=== PATIENT | female | born 1940 | race Caucasian/White ===

== ENCOUNTER → 2017-11-27 10:15 | Outpatient (CLI) | payer OTHER, SELFPAY ==
[2017-11-27 11:25] LABS: Add Manual Diff / Slide Review NO; Basophils Percent Auto 0.5 % (0-2); Eosinophils Percent Auto 2.2 % (2-4); Hematocrit 43.6 % (36-46); Hemoglobin 14.5 g/dL (12.0-16.0); Lymphocytes Percent Auto 17.4 % (25-40); Mean Corpuscular HGB Conc 33.3 % (30-36); Mean Corpuscular Hemoglobin 30.4 PG (26-34); Mean Corpuscular Volume 91.3 fL (80-100); Monocytes Percent Auto 5.9 % (3-14); Neutrophils Absolute Auto 5300 /uL (3000-5900); Platelet Count 246 X10^3/uL (150-400); Red Blood Cell Count 4.78 X10^6/uL (4.0-5.2); Red Cell Distribution Width 13.1 % (11.6-14.8); White Blood Cell Count 7.2 X10^3/uL (4.5-11.0)
[2017-11-27 12:11] LABS: Alanine Aminotransferase 37 IU/L (9-52); Albumin 4.6 g/dL (3.5-5.0); Albumin Globulin Ratio 1.6 (1.0-2.8); Alkaline Phosphatase 94 U/L (38-126); Aspartate Aminotransferase 34 IU/L (14-36); BUN Creatinine Ratio 18.3 (6-22); Bilirubin Total 0.9 mg/dL (0.2-1.3); Blood Urea Nitrogen 11 mg/dL (7-17); Calcium 9.7 mg/dL (8.4-10.2); Carbon Dioxide 31 mmol/L (22-32); Chloride 104 mmol/L (98-107); Estimated Glomerular Filt Rate > 60.0 mL/min (>60); Globulin 2.8 g/dL (1.7-4.1); Glucose 97 mg/dL (80-110); HEMOLYSIS < 15 (0-50); Sodium 144 mmol/L (137-145); Total Protein 7.4 g/dL (6.3-8.2)
[2017-11-27 12:12] LABS: Potassium 5.4 mmol/L (3.4-5.1)
[2017-11-27 12:40] LABS: Thyroid Stimulating Hormone 3.45 uIU/mL (0.47-4.68)
== END ==
PROVIDERS: PCP Family Medicine; Visit Provider Family Medicine
DX: A09 Infectious gastroenteritis and colitis, unspecified (principal)
CPT/HCPCS: 36415; 80053; 84443; 85025; 87177; 87493

== ENCOUNTER 2018-07-27 11:56 | Day surgery (SDC) | payer OTHER, SELFPAY ==
[2018-07-27 12:13] VITALS: BP 169/85; PULSE 67; RESP 15; TEMP 36.6; O2SAT 100; BMI 23.4
[2018-07-27] MEDS: SODIUM CHLORIDE 0.9% 1,000 ML 200 ML IV (12:33)
--- NOTE | 2018-07-27 12:51 | PM.HP.1 ---
History of Present Illness Date Patient Seen: 07/27/18 Time Patient Seen: 12:51 Chief complaint: 13819 SCREENING COLONOSCOPY Narrative: Asymptomatic here for screening colonoscopy Patient History Medical History Diverticular disease (Chronic Unknown) Herpes zoster (Chronic 2008) Hip pain (Chronic Unknown) Hydronephrosis (Chronic 1970) Osteopenia (Chronic Unknown) Positive PPD (Chronic Unknown) Restless leg syndrome (Chronic 1979) Breast cancer (Resolved 2010) Chickenpox (Resolved 1949) Colon polyps (Resolved Unknown) Hepatitis A (Resolved 1957) Kidney stones (Resolved 1969) Surgical History Hx of appendectomy (Resolved 2014) Hx of hysterectomy (Resolved 1989) Hx of left mastectomy (Resolved 2010) Hx of surgical procedure (Resolved ~1961) Family History (Updated 10/17/17 @ 14:28 by Ana Paula Rod LPN) Father No problems noted. Mother Diabetes mellitus Hypertension Brother No problems noted. Brother No problems noted. Sister Peripheral vascular disease Social History household members: spouse Smoking Status: Never smoker alcohol intake: current (1 a day) substance use type: does not use Family & Social History Family History Father No problems noted. Mother Diabetes mellitus Hypertension Brother No problems noted. Brother No problems noted. Sister Peripheral vascular disease Social History: household members spouse Tobacco & Substance use: Smoking Status Never smoker alcohol intake current Meds Home Medications Medication Instructions Recorded Confirmed Type pramipexole 0.25 mg tablet 0.25 mg PO HS #30 tab 07/09/18 07/27/18 Rx Allergies Allergy/AdvReac Type Severity Reaction Status Date / Time No Known Drug Allergies Allergy Verified 11/24/17 16:05 Review of Systems Review of Systems All systems reviewed & are unremarkable except as noted in HPI and below Exam Vital Signs (past 8 hours): - 07/27/18 12:13 Temperature 97.8 F Pulse Rate 67 Respiratory Rate 15 Blood Pressure 169/85 H Pulse Oximetry 100 Oxygen Delivery Method Room Air Narrative Exam Narrative: Patient is alert and oriented vital signs are stable Lungs are clear with no rales Heart regular rhythm no murmur Abdomen soft no organomegaly no tenderness She has surgical absence of the left breast due to carcinoma surgery Rectal redone at time of colonoscopy Assessment & Plan Assessment & Plan narrative: Asymptomatic patient has had prior polypectomies most recent colonoscopy about 5 years ago. She is asymptomatic now she understands and agrees to proceed with screening colonoscopy
[2018-07-27] MEDS: fentaNYL 250 MCG/5 ML INJ IV (13:07)
[2018-07-27] MEDS: MIDAZOLAM 5 MG/5 ML VIAL IV (13:08)
--- NOTE | 2018-07-27 13:24 | PM.OP.ENDO ---
Operative Date/Time/Diagnoses Date of procedure: 07/27/18 Time of procedure: 13:25 Pre-op diagnosis: Screening colonoscopy Post-op diagnosis: other (Severe marked sigmoid diverticulosis with rigidity and fixation of the sigmoid colon and stricturing of the sigmoid colon) Procedure & Clinicians Study performed: Colonoscopy to 40 cm in the descending sigmoid colon Same procedure as scheduled: No Indications: Screening with history of polyps suggested Surgeon: Michel Alcantar Procedure Notes SCOAP/Timeout: Done Procedure in detail: Total of 4 mg of Versed and 150 micro g of fentanyl were administered throughout this procedure. patient was properly identified during surgical pause flexible fiberoptic colonoscope inserted transanally into the rectum and then sigmoid colon. With extreme caution and great difficulty I was able to get the scope tip up to 40 cm in the descending colon at that point there is stricture ring rigidity and extremely severe diverticular disease and I cannot safely identify the lumen. After 25 minutes of trying to pass the scope through this region I aborted the procedure out of safety issues. My fear was possibly causing perforation of 1 of these diverticuli. I saw no polyps. She tolerated this procedure well. examination of the remainder of her colon will need to be done by an air contrast barium enema or capsule endoscopy if indicated. Scope withdrawal time: 7 Sedation minutes: 25 Findings: diverticulosis Specimen(s): none sent Complications: none Impression: Extremely severe sigmoid and descending colon diverticulosis with rigidity and stricture . No polyps are identified Follow up: as needed Disposition: PACU
[2018-07-27 13:26] VITALS: BP 111/55; PULSE 76; RESP 12; TEMP 36.5; O2SAT 93
[2018-07-27 13:31] VITALS: BP 109/63; PULSE 80; RESP 12; TEMP 36.7; O2SAT 95
[2018-07-27 13:36] VITALS: BP 120/69; PULSE 77; RESP 12; TEMP 36.6; O2SAT 94
[2018-07-27 13:50] VITALS: BP 136/85; PULSE 73; RESP 14; TEMP 36.5; O2SAT 99
== END 2018-07-27 14:02 | disposition home or self-care (01) ==
PROVIDERS: PCP Family Medicine; Visit Provider Surgery
PROC: 0DJD8ZZ Inspection of Lower Intestinal Tract, Via Natural or Artificial Opening Endoscopic (ICD-10-PCS; CPT 45378; principal; 2018-07-27 13:45)
DX: Z86.010 Personal history of colon polyps (principal); K57.30 Diverticulosis of large intestine without perforation or abscess without bleeding
CPT/HCPCS: G0105; 99152; 99153; J2250; J3010

== ENCOUNTER → 2018-11-23 13:12 | Outpatient (CLI) | payer OTHER, SELFPAY ==
[2018-11-23 14:15] LABS: Blood Urea Nitrogen 11 mg/dL (7-17); Calcium 9.2 mg/dL (8.4-10.2); Carbon Dioxide 24 mmol/L (22-32); Chloride 106 mmol/L (98-107); Cholesterol 210 mg/dL (140-199); Estimated Glomerular Filt Rate > 60.0 mL/min (>60); Glucose 96 mg/dL (80-110); HDL Cholesterol 106 mg/dL (40-60); HEMOLYSIS 33 (0-50); LDL Cholesterol Calculated 88 mg/dL (<100); Potassium 5.1 mmol/L (3.4-5.1); Sodium 141 mmol/L (137-145); Triglycerides 82 mg/dL (35-150)
[2018-11-23 16:54] LABS: Vitamin D 25 Hydroxy (D3) 31.6 ng/mL (30.0-100.0)
== END ==
PROVIDERS: PCP Student in an Organized Health Care Education/Training Program; Visit Provider Student in an Organized Health Care Education/Training Program
DX: Z13.220 Encounter for screening for lipoid disorders (principal); E55.9 Vitamin D deficiency, unspecified; M85.80 Other specified disorders of bone density and structure, unspecified site; E87.5 Hyperkalemia
CPT/HCPCS: 36415; 80048; 80061; 82306

== ENCOUNTER → 2018-12-18 09:41 | Outpatient (CLI) | payer OTHER, SELFPAY | PROVIDERS: PCP Student in an Organized Health Care Education/Training Program; Visit Provider Student in an Organized Health Care Education/Training Program | DX: M85.852 Other specified disorders of bone density and structure, left thigh (principal); Z78.0 Asymptomatic menopausal state; Z85.3 Personal history of malignant neoplasm of breast; Z82.62 Family history of osteoporosis; Z87.891 Personal history of nicotine dependence; Z91.89 Other specified personal risk factors, not elsewhere classified | CPT/HCPCS: 77080 ==

== ENCOUNTER → 2019-02-07 09:09 | Outpatient (CLI) | payer OTHER, SELFPAY ==
--- NOTE | 2019-02-07 | DI.MRI.S_ITS ---
PROCEDURE: MR LUMBAR SPINE WO CON INDICATIONS: Sacrococcygeal disorders, PAIN TECHNIQUE: Noncontrast sagittal T1 spin echo and T2 fast echo, sagittal STIR, axial T1 and T2 fast spin echo through the lumbar spine. Axial and oblique coronal T1 spin echo and STIR through the sacrum. In cases with scoliosis, additional coronal T2 fast spin echo may be performed. COMPARISON: None. FINDINGS: Image quality: Diagnostic Alignment and Curvature: There is mild anterolisthesis seen at the L4-L5 and L5-S1 levels. Bone Marrow: Marrow is of normal overall signal. No acute vertebral body compression fractures. No sacral fractures. Spinal Cord: Conus medullaris terminates at the T12-L1 level. Visualized cord demonstrates normal signal and size. Paraspinous Soft Tissues: No paravertebral masses. Renal cysts are seen, left worse than right. T12-L1: Normal appearance. L1-L2: Normal appearance. L2-L3: The disc height and disc signal are relatively well-preserved. Mild generalized disc bulge is seen. Mild bilateral neural foraminal narrowing is seen. No central canal narrowing is seen. L3-L4: Moderate loss of disc height is seen. Loss of disc signal is seen. Mild to moderate disc bulge is seen. There is minimal left-sided neural foraminal narrowing and no significant right-sided neural foraminal narrowing is seen. Mild central canal narrowing is seen. L4-L5: Moderate loss of disc height is seen. Loss of disc signal is seen. Reactive marrow endplate changes are seen, which demonstrate mixed T1 weighted and T2-weighted signal, and are attributed to a combination of edema and fatty metaplasia (Modic type I and Modic type II changes). Mild to moderate disc bulge is seen. Ooxj-dy-ncphlsop facet hypertrophy is seen. Mild bilateral neural foraminal narrowing is seen. Mild central canal narrowing is seen. L5-S1: The disc height is well-preserved. Loss of disc signal is seen at this level. Mild generalized disc bulge is seen. No significant neural foraminal or central canal narrowing can be seen. Sacrum: Sacral neural foramina appear normal throughout. Superior to the piriformis muscles, the pre-plexal structures appear normal, including the lumbosacral trunk and S1 root. Just anterior to the piriformis muscles, the sacral plexus proper demonstrates normal morphology (lumbosacral trunk, S1 to S3 nerve roots). Inferior to the piriformis muscles, the sciatic nerves appear normal. Note is made of fatty metaplasia within the sacrum itself. No additional bone marrow abnormality can be seen of the sacrum. No fractures or bony edema can be seen within the sacrum. IMPRESSION: No significant sacral abnormality is seen. Lumbar spine degenerative changes are seen, which are most prominent at L3-L4 and L4-L5. Dictated by: Jairo Patten M.D. on 02/07/2019 at 10:53 Approved by: Jairo Patten M.D. on 02/07/2019 at 10:58
== END ==
PROVIDERS: PCP Student in an Organized Health Care Education/Training Program; Visit Provider Orthopaedic Surgery
DX: M53.3 Sacrococcygeal disorders, not elsewhere classified (principal); M47.816 Spondylosis without myelopathy or radiculopathy, lumbar region
CPT/HCPCS: 72148

== ENCOUNTER → 2020-01-23 07:58 | Outpatient (CLI) | payer OTHER, SELFPAY ==
--- NOTE | 2020-01-23 07:59 | DI.ECHO.S_ITS ---
[facility] +---------+ : : [address] : [place] : : : : [id number] : : : : Phone: [phone] Echocardiogram Report + + :Name: SARBJIT DAVE Study Date: 01/23/2020 Height: 65 in : :[facility] Weight: 146 lb : : Gender: Female BSA: 1.7 m2 : :: 1940 Age: 79 yrs BP: 130/83 mmHg: :Reason For Study: MURMUR : :Ordering Physician: RISA, : :JHONY Performed By: Ana Maxwell : :Referring: JHONY LORD : + + Interpretation Summary The ejection fraction is estimated to be 60-65%. There is mild mitral annular calcification. There is trace mitral regurgitation. There is mild aortic valve sclerosis. The calculated aortic valve area is 1.6 cm2. There is mild aortic regurgitation. There is mild tricuspid regurgitation. The right ventricular systolic pressure is estimated to be at least 30 mmHg based on an estimated right atrial pressure of 3 mm Hg. Procedure: A two-dimensional transthoracic echocardiogram with color flow and Doppler was performed. The study quality was technically adequate. There is no prior echocardiogram noted for this patient. Left Ventricle: The left ventricle is normal in size and wall thickness. The ejection fraction is estimated to be 60-65%. Left ventricular wall motion is normal. Diastolic parameters suggest probable normal left ventricular diastolic function and normal filling pressures. Right Ventricle: The right ventricle is normal in size and function. Atria: There is mild biatrial enlargement. Right atrial size is normal. There is no Doppler evidence for an interatrial shunt. Mitral Valve: The mitral valve leaflets appear mildly thickened, but open well. There is mild mitral annular calcification. There is trace mitral regurgitation. Aortic Valve: There is mild aortic valve sclerosis. The aortic valve is mildly calcified. The aortic valve is trileaflet. The aortic valve mean gradient is 12.6 mmHg. The peak aortic velocity is 2.5 m/sec. The calculated aortic valve area is 1.6 cm2. There is mild aortic regurgitation. Tricuspid Valve: The tricuspid valve is normal in structure and function. There is mild tricuspid regurgitation. The right ventricular systolic pressure is estimated to be at least 30 mmHg based on an estimated right atrial pressure of 3 mm Hg. Pulmonic Valve: The pulmonic valve is not well visualized. There is mild pulmonic regurgitation. Great Vessels: The aortic root is normal size. The ascending aorta is mildly enlarged. The IVC is of normal diameter and collapses greater than 50% with a sniff. This suggests a low right atrial pressure of 3 mm Hg. Pericardium/ Pleura There is no pericardial effusion. There is no pleural effusion. MMode/2D Measurements & Calculations LVIDd: 4.6 cm LVOT diam: 1.9 cm LVIDs: 3.1 cm Ao root diam: 2.8 cm FS: 33.1 % asc Aorta Diam: 3.7 cm EPSS: 1.1 cm Ao Arch Diam (Prox Trans): 2.4 cm IVSd: 0.88 cm LVPWd: 0.90 cm LV duarte. diameter/BSA (cm/m^2): 2.6 LV sys. diameter/BSA (cm/m^2): 1.8 LA A2 area: 24.9 cm2 RA long axis: 4.1 cm LA A4 area: 14.8 cm2 RA area: 11.1 cm2 LA length (vol): 5.0 cm RA vol: 25.5 ml LA vol: 62.6 ml RA : 14.7 ml/m2 LA vol index: 36.2 ml/m2 IVC diam: 1.7 cm RVD1 (basal): 3.0 cm TAPSE: 1.8 cm Doppler Measurements & Calculations Ao V2 max: 251.6 cm/sec LVOT Max Ayden: 134.9 cm/sec Ao V2 mean: 161.6 cm/sec LV V1 max P.3 mmHg Ao max P.3 mmHg LV V1 VTI: 25.6 cm Ao mean P.6 mmHg BINTA(I,D): 1.4 cm2 Ao V2 VTI: 52.3 cm BINTA(V,D): 1.6 cm2 sev ratio: 0.49 BINTA indexed to BSA (cm^2/m^2): 0.83 AI P1/2t: 604.7 msec AI dec slope: 204.4 cm/sec2 MV E max ayden: 106.8 cm/sec TR max ayden: 261.8 cm/sec MV A max ayden: 104.1 cm/sec TR max P.4 mmHg MV E/A: 1.0 PA V2 max: 76.5 cm/sec Med Peak E' Ayden: 9.5 cm/sec PA V2 mean: 47.5 cm/sec E/E' med: 11.3 PA mean P.1 mmHg Lat Peak E' Ayden: 10.5 cm/sec PA pr(Accel): 20.8 mmHg E/E' lat: 10.2 E/e' average: 10.7 MV dec time: 0.18 sec SV(LVOT): 75.3 ml Reading Physician:12:37 PM
== END ==
PROVIDERS: PCP Student in an Organized Health Care Education/Training Program; Referring Provider Student in an Organized Health Care Education/Training Program; Visit Provider Student in an Organized Health Care Education/Training Program
DX: I08.2 Rheumatic disorders of both aortic and tricuspid valves (principal); R01.1 Cardiac murmur, unspecified; Z82.49 Family history of ischemic heart disease and other diseases of the circulatory system
CPT/HCPCS: 93306

== ENCOUNTER 2020-02-20 10:29 | Emergency (ER) | payer OTHER, SELFPAY ==
[2020-02-20 10:48] VITALS: BP 171/80; PULSE 66; RESP 14; TEMP 36.4; O2SAT 100; BMI 25.0
--- NOTE | 2020-02-20 10:50 | DI.RAD.S_ITS ---
PROCEDURE: XR HUMERUS RT 2V INDICATIONS: fell onto right arm TECHNIQUE: 2 views of the humerus were acquired. COMPARISON: None. FINDINGS: Bones: No acute fractures. No suspicious bony lesions. Mild widening of the acromioclavicular joint. Soft tissues: No suspicious soft tissue calcifications. IMPRESSION: No acute humeral fracture. Mild widening of the acromioclavicular joint space. Dictated by: Derrick Lloyd M.D. on 02/20/2020 at 10:21 Approved by: Derrick Lloyd M.D. on 02/20/2020 at 10:22
--- NOTE | 2020-02-20 10:50 | DI.RAD.S_ITS ---
PROCEDURE: XR SHOULDER RT MIN 2V INDICATIONS: fell onto right arm TECHNIQUE: Three views of the shoulder were acquired. COMPARISON: None. FINDINGS: Bones: Mild widening of the acromioclavicular joint may indicate a grade 1-2 acromioclavicular separation injury. The remaining osseous structures are intact. No suspicious bony lesions. Visualized ribs appear intact. Soft tissues: No suspicious soft tissue calcifications. IMPRESSION: Mild widening of the acromioclavicular joint is suspicious for an acromioclavicular separation injury. No acute fracture is seen. Dictated by: Derrick Lloyd M.D. on 02/20/2020 at 10:17 Approved by: Derrick Lloyd M.D. on 02/20/2020 at 10:21
--- NOTE | 2020-02-20 10:59 | DI.RAD.S_ITS ---
PROCEDURE: XR FINGER RT MIN 2V INDICATIONS: injury TECHNIQUE: PA view of the hand and two views of the small finger obtained. COMPARISON: None. FINDINGS: Bones: There is irregularity and remodeling of the articular surfaces at the 5th proximal interphalangeal joint with marginal osteophyte formation and joint space narrowing, which may be related to primary osteoarthrosis or inflammatory or posttraumatic arthritis with secondary degenerative changes. Degenerative changes are seen in the distal interphalangeal joints in the 2nd and 4th proximal interphalangeal joints. There is generalized osteopenia. No displaced fracture is seen. Soft tissues: No suspicious soft tissue calcifications. IMPRESSION: 1. Severe degenerative changes at the 5th proximal interphalangeal joint may be related to primary osteoarthrosis versus chronic posttraumatic changes or the sequela of an inflammatory arthritis such as psoriatic arthritis. 2. 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 3. No acute fracture or dislocation is seen. Dictated by: Derrick Lloyd M.D. on 02/20/2020 at 10:22 Approved by: Derrick Lloyd M.D. on 02/20/2020 at 10:28
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
[2020-02-20 12:34] VITALS: BP 171/77; PULSE 66; RESP 12; O2SAT 98
== END 2020-02-20 12:37 | disposition home or self-care (01) ==
PROVIDERS: Emergency Provider Nurse Practitioner Family; PCP Student in an Organized Health Care Education/Training Program
DX: S40.021A Contusion of right upper arm, initial encounter (principal); S43.101A Unspecified dislocation of right acromioclavicular joint, initial encounter; M79.644 Pain in right finger(s); W19.XXXA Unspecified fall, initial encounter
CPT/HCPCS: 73030; 73060; 73140; 99281; 99283

== ENCOUNTER → 2020-03-28 12:47 | Outpatient (CLI) | payer OTHER, SELFPAY ==
--- NOTE | 2020-03-28 | DI.MRI.S_ITS ---
PROCEDURE: MR SHOULDER RT WO CON INDICATIONS: Bursitis of right shoulder TECHNIQUE: Noncontrast oblique coronal T2 fast spin echo with fat saturation, oblique sagittal T1 spin echo and T2 fast spin echo with fat saturation, axial T1 spin echo and T2 fast spin echo with fat saturation through the shoulder. COMPARISON: None. FINDINGS: Image quality: Excellent. Rotator cuff: There is full-thickness rupture involving anterior to mid fibers of distal supraspinatus at its insertion on the humeral head with up to 2 centimeter medial retraction of torn tendon fibers to the level of acromion. Tendinosis and low to moderate grade articular surface partial-thickness tear involving posterior fibers of distal supraspinatus and infraspinatus is seen. Distal subscapularis tendinosis is noted. Sagittal images demonstrate mild supraspinatus muscle atrophy. Bones and bursae: No bone marrow contusions or fractures. Mild to moderate acromioclavicular joint osteoarthritic changes are seen. Mild glenohumeral joint osteoarthritic changes also noted. The acromion demonstrates conventional anatomy, without an os acromiale. Moderate amount of joint effusion and subacromial subdeltoid bursal fluid is seen. 8 x 4 mm possible intra-articular loose body in anterior aspect of joint capsule anterior to the distal subscapularis tendon is seen. Capsule and soft tissues: In the absence of intra-articular contrast, the labrum and glenohumeral ligaments appear intact. Proximal intra-articular portion of long head of biceps tendinosis and low-grade partial-thickness tear is seen. The rotator interval appears normal, without fibrosis. The coracohumeral ligament is normal in thickness. IMPRESSION: 1. Full-thickness rupture involving anterior to mid fibers of distal supraspinatus at its insertion on the humeral head with up to 2 cm medial retraction of torn tendon fibers to the level of acromion. Tendinosis and low to moderate grade articular surface partial-thickness tear involving posterior fibers of distal supraspinatus and infraspinatus. Distal subscapularis tendinosis. Mild supraspinatus muscle atrophy. 2. Mild to moderate acromioclavicular joint osteoarthritis and glenohumeral joint osteoarthritis. Moderate amount of joint effusion and subacromial subdeltoid bursal fluid. Possible 8 x 4 mm intra-articular loose body in anterior aspect of glenohumeral joint space anterior to the distal subscapularis tendon. 3. No definite focal labral tear. 4. Proximal intra-articular portion of long head of biceps tendinosis and low-grade partial-thickness tear. Dictated by: Rinku Maldonado M.D. on 03/30/2020 at 9:24 Approved by: Rinku Maldonado M.D. on 03/30/2020 at 9:30
== END ==
PROVIDERS: PCP Student in an Organized Health Care Education/Training Program; Referring Provider Orthopaedic Surgery; Visit Provider Orthopaedic Surgery
DX: M75.51 Bursitis of right shoulder (principal); M75.121 Complete rotator cuff tear or rupture of right shoulder, not specified as traumatic; S46.111A Strain of muscle, fascia and tendon of long head of biceps, right arm, initial encounter; M19.011 Primary osteoarthritis, right shoulder
CPT/HCPCS: 73221

== ENCOUNTER → 2020-05-04 15:17 | Outpatient (CLI) | payer OTHER, SELFPAY ==
[2020-05-04 15:20] LABS: Bacteria Urine None Seen; WBC Urine None Seen (0-5/HPF)
[2020-05-04 17:25] LABS: Appearance Urine UA CLEAR; Bilirubin Urine UA NEGATIVE (NEGATIVE); Color Urine UA YELLOW; Glucose Urine UA NEGATIVE (Negative); Ketones Urine UA NEGATIVE (NEGATIVE); Leukocyte Esterase Urine UA NEGATIVE (NEGATIVE); Nitrite Urine UA NEGATIVE (Negative); Occult Blood Urine UA 3+ (Negative); Protein Urine UA NEGATIVE (Negative); Specific Gravity Urine UA <=1.005 (1.000-1.035); Urobilinogen Urine UA 0.2 E.U./dL (0.2)
[2020-05-04 17:51] LABS: Culture Indicated Urine Cult Not Indicated; RBC Urine 5-10/HPF (0-5/HPF); Renal Epithelial Cells Urine 1-5/HPF (0-1/HPF)
== END ==
PROVIDERS: PCP Student in an Organized Health Care Education/Training Program; Referring Provider Student in an Organized Health Care Education/Training Program; Visit Provider Student in an Organized Health Care Education/Training Program
DX: R31.9 Hematuria, unspecified (principal)
CPT/HCPCS: 81001

== ENCOUNTER → 2020-05-06 13:17 | Outpatient (CLI) | payer OTHER, SELFPAY ==
[2020-05-06 13:59] LABS: BUN Creatinine Ratio 20.6 (6-22); Blood Urea Nitrogen 13 mg/dL (7-17); Estimated Glomerular Filt Rate > 60.0 mL/min (>60)
--- NOTE | 2020-05-06 15:04 | DI.CT.S_ITS ---
PROCEDURE: CT ABDOMEN PELVIS WO/W CON INDICATIONS: Hematuria, no prior imaging TECHNIQUE: Optional 5 mm thick noncontrast images acquired from the diaphragm to the symphysis pubis. After the administration of intravenous contrast, 5 mm thick images acquired from the diaphragm to the symphysis pubis after a 10-minute delay. 2 mm thick coronal and sagittal reformats were then performed of the kidneys and ureters. For radiation dose reduction, the following was used: automated exposure control, adjustment of mA and/or kV according to patient size. COMPARISON: [facility], MR, MR LUMBAR SPINE WO CON, 02/07/2019, 9:29. FINDINGS: Image quality: Excellent. Lung bases: Lung bases are clear. Heart size is normal. Urinary system: Both kidneys are normal in size, but there is bilateral hydronephrosis that is greater on the left than the right, and associated with hydroureter bilaterally greater on the left than the right. The maximal diameter of the left ureters up to 2.8 cm and that on the right up to 1.5 cm. Note is made of a nonobstructive 3 x 4 mm calculus at the lower 3rd collecting system on the right, and none seen on the left. No definite ureteral calculus is found either. There are several pelvic phleboliths near the distal ureteral insertions on the bladder wall but these appear extraluminal. No perinephric fat stranding. There is normal bilateral renal enhancement. Bladder wall thickness is normal, and a definite polypoid urothelial mass is not seen. The radiodensity of the distal ureters as they extend through the bladder wall is slightly elevated, but a definite mass in that area of transition to dilatation more superiorly is not visualized. No calcified bladder stones. Other solid organs: Liver is normal in size and enhancement. Gallbladder is partially contracted. Biliary system is non dilated. Pancreas enhances normally. Spleen is normal in size and enhancement. No adrenal nodules. Peritoneum and bowel: Bowel loops demonstrate normal wall thickness and caliber. No free fluid or air. Nodes and vessels: No retroperitoneal or mesenteric adenopathy by size criteria. Aorta and inferior vena cava are normal in size. Abdominal wall: No ventral hernias. Pelvis: No pathologic free pelvic fluid. No inguinal hernias or adenopathy. Bones: No suspicious bony lesions. No vertebral body compression fractures. IMPRESSION: Asymmetric significant bilateral hydronephrosis and hydroureter, without renal cortical atrophy at this time. As discussed the left ureter measures up to 2.8 cm in diameter and the right measures up to 1.5 cm in diameter, and there is no identified polypoid mass as etiology of this abnormality within the distal ureters or at the bladder trigone margin. 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 Urology consultation is recommended given the unusual combination of findings and concern for potential of progression of urinary tract outflow obstruction or restriction.. There is a 3 x 4 mm nonobstructive stone within the lower 3rd collecting system of the right kidney, as a potential etiology of hematuria. Dictated by: Surjit Champagne M.D. on 05/07/2020 at 16:20 Approved by: Surjit Champagne M.D. on 05/07/2020 at 16:27
== END ==
PROVIDERS: PCP Student in an Organized Health Care Education/Training Program; Referring Provider Student in an Organized Health Care Education/Training Program; Visit Provider Student in an Organized Health Care Education/Training Program
DX: Z01.812 Encounter for preprocedural laboratory examination (principal); R10.9 Unspecified abdominal pain; R31.9 Hematuria, unspecified; N13.2 Hydronephrosis with renal and ureteral calculous obstruction
CPT/HCPCS: 74170; 82565; 84520; Q9967

== ENCOUNTER → 2020-05-15 09:09 | Outpatient (CLI) | payer OTHER, SELFPAY | PROVIDERS: PCP Student in an Organized Health Care Education/Training Program; Referring Provider Student in an Organized Health Care Education/Training Program; Visit Provider Student in an Organized Health Care Education/Training Program | DX: N13.30 Unspecified hydronephrosis (principal); N28.82 Megaloureter; Z53.8 Procedure and treatment not carried out for other reasons ==

== ENCOUNTER → 2020-05-16 08:58 | Outpatient (CLI) | payer OTHER, SELFPAY ==
--- NOTE | 2020-05-16 | DI.MG.S_ITS ---
UNILATERAL RIGHT DIGITAL SCREENING MAMMOGRAM 3D/2D WITH CAD POST MASTECTOMY: 05/16/2020 CLINICAL: Routine screening. Personal history of left breast cancer. Comparison is made to exams dated: 02/20/2017 mammogram, 04/05/2018 mammogram, and 05/02/2019 mammogram - [facility]. There are scattered fibroglandular elements in right breast. Current study was also evaluated with a Computer Aided Detection (CAD) system. No significant masses, calcifications, or other findings are seen in the breast. There has been no significant interval change. IMPRESSION: NEGATIVE There is no mammographic evidence of malignancy. A 1 year screening mammogram is recommended. This exam was interpreted at Station ID: [id number]. NOTE: For mammograms, a report in lay terms will be sent to the patient. Approximately 15% of breast malignancies will not be visualized mammographically. In the management of a palpable breast mass, a negative mammogram must not discourage biopsy of a clinically suspicious lesion. Electronically Signed By: Dario mcdowell/rome:05/18/2020 07:45:52 letter sent: Normal Exam ACR BI-RADS Category 1: Negative [id number]
== END ==
PROVIDERS: PCP Student in an Organized Health Care Education/Training Program; Referring Provider Student in an Organized Health Care Education/Training Program; Visit Provider Student in an Organized Health Care Education/Training Program
DX: Z12.31 Encounter for screening mammogram for malignant neoplasm of breast (principal); Z85.3 Personal history of malignant neoplasm of breast
CPT/HCPCS: 77063; 77067

== ENCOUNTER → 2020-05-18 07:43 | Outpatient (CLI) | payer OTHER, SELFPAY ==
--- NOTE | 2020-05-18 | DI.NM.S_ITS ---
PROCEDURE: NM RENAL FUNCTION W LASIX RADIOPHARMACEUTICAL: 10.4 mCi Tc-99m MAG3 IV and 40 mg furosemide IV. INDICATIONS: Chronic ureteral and collecting system dilatation TECHNIQUE: The patient was hydrated orally before the examination was begun. After intravenous administration of Tc-99m MAG3, posterior abdominal radionuclide angiogram and sequential (1 minute each frame) renal images were obtained. A time-activity curve for each kidney was generated and analyzed. To evaluate for obstruction, the patient was given 40 mg furosemide via slow intravenous injection after the start of the examination. Sequential images were obtained for up to an additional 20 minutes. COMPARISON: [facility], CT, CT ABDOMEN PELVIS WO/W CON, 05/06/2020, 15:11. FINDINGS: Perfusion: There is normal vascular flow to both kidneys. Morphology: Both kidneys are normal in size and shape. There are dilated renal pelvis and ureters bilaterally, left greater than right. Bladder fill with tracer, and appears normal. Function: The kidneys demonstrate mildly delayed cortical tracer uptake. The right kidney ufnc-kr-wczh activity is 8.5 minutes. The left kidney time-to peak activity is 16.5 minutes. The right kidney contributes 52.8% of total renal function. The left kidney contributes 47.2 % of total renal function. Lasix stimulation: After diuretic administration, there is prompt clearance of tracer activity from the renal collecting systems in both kidneys. The half-time of emptying of tracer activity from the right pelvicaliceal system is 5 minutes. The half-time of emptying from the left pelvicaliceal system is 9.9 minutes. Normal emptying half-times are less than 10 minutes; borderline ranges are from 10 to 20 minutes. IMPRESSION: 1. Hydronephrosis and hydroureter bilaterally, left greater than right. Renal functions are slightly decreased with delayed mfkm-gc-eeko activity, left greater than right. 2. Normal T1/2. No findings to suggest urinary obstruction. 3. Right kidney contributes 52.8% of total renal function. Left kidney contributes 47.2% of total renal function. Dictated by: Dashawn Perez M.D. on 05/18/2020 at 10:55 Approved by: Dashawn Perez M.D. on 05/18/2020 at 11:25
== END ==
PROVIDERS: PCP Student in an Organized Health Care Education/Training Program; Referring Provider Student in an Organized Health Care Education/Training Program; Visit Provider Student in an Organized Health Care Education/Training Program
DX: N13.30 Unspecified hydronephrosis (principal); N28.82 Megaloureter
CPT/HCPCS: 78708; A9562

== ENCOUNTER → 2020-06-29 09:37 | Outpatient (CLI) | payer OTHER, SELFPAY ==
[2020-06-29 11:26] LABS: Calcium 9.9 mg/dL (8.4-10.2); Uric Acid 3.6 mg/dL (2.5-6.2)
[2020-06-30 05:30] LABS: Parathyroid Hormone Int 37 pg/mL (15-65)
== END ==
PROVIDERS: PCP Student in an Organized Health Care Education/Training Program; Referring Provider Specialist; Visit Provider Specialist
DX: N20.0 Calculus of kidney (principal)
CPT/HCPCS: 36415; 82310; 83970; 84550

== ENCOUNTER → 2020-07-01 15:16 | Outpatient (CLI) | payer OTHER, SELFPAY ==
--- NOTE | 2020-07-01 15:17 | DI.RAD.S_ITS ---
PROCEDURE: XR KUB INDICATIONS: Kidney stones TECHNIQUE: One view of the abdomen acquired. COMPARISON: None. FINDINGS: Surgical changes and devices: None. Bowel: Bowel gas pattern is normal. Soft tissues: No suspicious abdominal calcifications. Visualized solid organ contours appear normal in size. Bones: No suspicious bony lesions. IMPRESSION: Negative evaluation. No evidence of urinary tract calculi. Dictated by: Alejandro Alvarado M.D. on 07/01/2020 at 16:42 Approved by: Alejandro Alvarado M.D. on 07/01/2020 at 16:42
== END ==
PROVIDERS: PCP Student in an Organized Health Care Education/Training Program; Referring Provider Specialist; Visit Provider Specialist
DX: Z87.442 Personal history of urinary calculi (principal); N20.0 Calculus of kidney
CPT/HCPCS: 74018

== ENCOUNTER → 2020-12-04 11:48 | Outpatient (CLI) | payer OTHER, SELFPAY ==
--- NOTE | 2020-12-04 11:49 | DI.CT.S_ITS ---
PROCEDURE: CT CHEST WO CON INDICATIONS: 6 mo f/u pulm nodule left TECHNIQUE: Noncontrast 2.0-2.5 mm thick sections acquired from the pulmonary apices to the posterior costophrenic angles. 7 mm thick axial MIP and 5 mm coronal and sagittal reformats were then acquired. A low radiation dose technique was utilized. COMPARISON: [facility], CT, CT ABDOMEN PELVIS WO/W CON, 05/06/2020, 15:11. FINDINGS: Image quality: Diagnostic, given the low radiation dose technique. Lungs and pleura: There is a 7 x 5 mm calcified nodule in the left lower lobe which is unchanged compared to the prior CT on 05/06/2020. Mediastinum: Heart size is normal. No pericardial effusion. Hilar calcifications are noted. No mediastinal adenopathy by size criteria. The coronary arteries have atherosclerotic calcifications. Thoracic aorta and central pulmonary arteries are normal in size. Esophagus is normal in caliber. No hiatal hernia. Bones and chest wall: No suspicious bony lesions. No vertebral body compression fractures. No axillary or supraclavicular adenopathy by size criteria. Thyroid gland is normal. The left breast has an intact implant. No right breast implant is present. Abdomen: Visualized upper abdomen solid organs and bowel loops appear normal in the absence of contrast. Both renal collecting systems are prominent similar to prior x-ray on 05/06/2020. IMPRESSION: 1. No acute abnormality of the chest. 2. 5 x 7 mm nodule in the left lower lobe with calcifications is likely benign. Recommend follow-up CT in 1 year to ensure long-term stability. Dictated by: Edin Walters M.D. on 12/04/2020 at 12:08 Approved by: Edin Walters M.D. on 12/04/2020 at 12:15
== END ==
PROVIDERS: PCP Student in an Organized Health Care Education/Training Program; Referring Provider Student in an Organized Health Care Education/Training Program; Visit Provider Student in an Organized Health Care Education/Training Program
DX: R91.1 Solitary pulmonary nodule (principal)
CPT/HCPCS: 71250

== ENCOUNTER → 2021-01-27 12:46 | Outpatient (CLI) | payer OTHER, SELFPAY ==
--- NOTE | 2021-01-27 | DI.MRI.S_ITS ---
PROCEDURE: MR PELVIS WO CON INDICATIONS: Pelvic and perineal pain,Spinal stenosis TECHNIQUE: Noncontrast coronal and axial T1 spin echo and STIR through the bony pelvis. COMPARISON: None. FINDINGS: Image quality: Excellent. Bones: Bone marrow of the pelvic ring, sacrum, and proximal femurs show normal signal throughout. No intraosseous lesions or fractures identified. Lower lumbar spondylosis and facet disease. Tendons: The gluteus medius and minimus tendons appear thickened with intrasubstance T2 hyperintense signal changes. There is associated muscle atrophy. Severe trochanteric bursitis is seen with a large amount of fluid. The nearby proximal iliotibial band appears intact. The iliopsoas tendon appears intact, without adjacent bursal fluid collections or evidence for impingement syndrome. The origin of the hamstring tendon is intact at the ischial tuberosity, as well as the associated sacrotuberous ligament. The straight and reflected heads of the rectus femoris muscle origin appear intact, as well as the conjoint tendon. Soft tissues: No joint effusions. No free pelvic fluid. Bladder wall thickness is normal. Genitourinary structures and bowel loops appear normal where visualized. IMPRESSION: Severe left hip abductor insertional tendinopathy and partial tear. Severe left-sided trochanteric bursitis. Dictated by: Ramin Steven M.D. on 01/27/2021 at 15:47 Approved by: Ramin Steven M.D. on 01/27/2021 at 15:51
--- NOTE | 2021-01-27 13:31 | DI.MRI.S_ITS ---
PROCEDURE: MR LUMBAR SPINE WO CON INDICATIONS: Pelvic and perineal pain,Spinal stenosis TECHNIQUE: Noncontrast sagittal T1 spin echo and T2 fast echo, sagittal STIR, axial T1 and T2 fast spin echo through the lumbar spine. In cases with scoliosis, additional coronal T2 fast spin echo may be performed. COMPARISON: Located Within [facility], CT, CT ABDOMEN PELVIS WO/W CON, 05/06/2020, 15:11. [facility] [place] [facility], CR, XR LUMBAR SPINE 2 OR 3 VIEWS, 12/28/2020, 10:41. Located Within [facility], MR, MR LUMBAR SPINE WO CON, 02/07/2019, 9:29. FINDINGS: Image quality: Excellent. Alignment and Curvature: 5 lumbar type vertebral bodies are present by plain film. Mild grade 1 retrolisthesis of L2 on L3. Mild grade 1 anterolisthesis of L5 on S1. Bone Marrow: Marrow is of normal overall signal. No acute vertebral body compression fractures. Mild reactive signal throughout the endplates of the lumbar and lower thoracic spine. Spinal Cord: Conus medullaris terminates at the mid L1 level. Visualized cord demonstrates normal signal and size. Paraspinous Soft Tissues: No paravertebral masses. No change in moderate left and mild right hydronephrosis. Moderate left and mild right ureteral dilatation is present, as before. T12-L1: Mild disc desiccation. No significant canal, or foraminal stenosis. No significant change. L1-L2: Mild disc desiccation and diffuse disc bulge. Mild facet and ligamentum flavum hypertrophy. Mild canal stenosis. No foraminal stenosis. No significant change. L2-L3: Mild disc height loss and desiccation. Mild diffuse disc bulge. Mild facet and ligamentum flavum hypertrophy. Mild canal stenosis. Mild bilateral foraminal stenosis. L3-L4: Moderate disc height loss and desiccation. Mild diffuse disc bulge. Mild facet and ligamentum flavum hypertrophy. Mild canal stenosis. Mild bilateral foraminal stenosis. L4-L5: Moderate disc height loss and desiccation. Mild diffuse disc bulge. Mild facet and ligamentum flavum hypertrophy. Mild canal stenosis. Mild bilateral foraminal stenosis. No significant change. L5-S1: Mild disc height loss and desiccation. Mild diffuse disc bulge. Mild facet and ligamentum flavum hypertrophy. Mild canal stenosis. Mild bilateral foraminal stenosis. No significant change. IMPRESSION: 1. Multilevel degenerative disc and facet disease, as well as ligamentum flavum hypertrophy and epidural lipomatosis. 2. Mild multilevel canal and foraminal stenoses. No neural impingement. 3. No change in left greater than right hydronephrosis and ureteral dilatation. Dictated by: Alejandro Alvarado M.D. on 01/27/2021 at 15:37 Approved by: Alejandro Alvarado M.D. on 01/27/2021 at 15:40
== END ==
PROVIDERS: PCP Student in an Organized Health Care Education/Training Program; Referring Provider Physical Medicine & Rehabilitation; Visit Provider Physical Medicine & Rehabilitation
DX: M51.36 Other intervertebral disc degeneration, lumbar region (principal); M48.062 Spinal stenosis, lumbar region with neurogenic claudication; N13.30 Unspecified hydronephrosis; S76.012A Strain of muscle, fascia and tendon of left hip, initial encounter; M71.552 Other bursitis, not elsewhere classified, left hip
CPT/HCPCS: 72148; 72195

== ENCOUNTER → 2021-05-05 12:52 | Outpatient (CLI) | payer OTHER, SELFPAY ==
[2021-05-05 14:41] LABS: Blood Urea Nitrogen 13 mg/dL (7-17); Carbon Dioxide 27 mmol/L (22-32); Chloride 106 mmol/L (98-107); Estimated Glomerular Filt Rate > 60.0 mL/min (>60); Glucose 86 mg/dL (80-110); HEMOLYSIS < 15 (0-50); Sodium 140 mmol/L (137-145)
== END ==
PROVIDERS: PCP Student in an Organized Health Care Education/Training Program; Referring Provider Student in an Organized Health Care Education/Training Program; Visit Provider Student in an Organized Health Care Education/Training Program
DX: I10 Essential (primary) hypertension (principal)
CPT/HCPCS: 36415; 80048

== ENCOUNTER → 2021-06-08 09:58 | Outpatient (CLI) | payer OTHER, SELFPAY ==
--- NOTE | 2021-06-08 | DI.MG.S_ITS ---
UNILATERAL RIGHT DIGITAL SCREENING MAMMOGRAM 3D/2D WITH CAD POST MASTECTOMY: 06/08/2021 CLINICAL: Routine screening. Breast cancer. Comparison is made to exams dated: 05/16/2020 mammogram - [facility], 05/02/2019 mammogram, and 04/05/2018 mammogram - [facility]. The tissue of right breast is heterogeneously dense. This may lower the sensitivity of mammography. Current study was also evaluated with a Computer Aided Detection (CAD) system. There are stable benign calcifications in the right breast. There also are stable benign vascular calcifications in the right breast. No significant masses, calcifications, or other findings are seen in the breast. There has been no significant interval change. IMPRESSION: BENIGN There is no mammographic evidence of malignancy. A 1 year screening mammogram is recommended. This exam was interpreted at Station ID: [id number]. NOTE: For mammograms, a report in lay terms will be sent to the patient. Approximately 15% of breast malignancies will not be visualized mammographically. In the management of a palpable breast mass, a negative mammogram must not discourage biopsy of a clinically suspicious lesion. Electronically Signed By: Sammi vale/rome:06/08/2021 12:05:00 letter sent: Normal Exam ACR BI-RADS Category 2: Benign Finding(s) [id number]
== END ==
PROVIDERS: PCP Student in an Organized Health Care Education/Training Program; Referring Provider Student in an Organized Health Care Education/Training Program; Visit Provider Student in an Organized Health Care Education/Training Program
DX: Z12.31 Encounter for screening mammogram for malignant neoplasm of breast (principal); Z85.3 Personal history of malignant neoplasm of breast
CPT/HCPCS: 77063; 77067

== ENCOUNTER → 2021-07-26 10:34 | Outpatient (CLI) | payer OTHER, SELFPAY ==
[2021-07-26 14:43] LABS: COVID19 -Nasal RAPID Negative (Negative)
== END ==
PROVIDERS: PCP Student in an Organized Health Care Education/Training Program; Visit Provider Physical Medicine & Rehabilitation
DX: Z20.822 Contact with and (suspected) exposure to COVID-19 (principal)
CPT/HCPCS: 87635; C9803

== ENCOUNTER 2021-07-27 13:34 | Outpatient (CLI) | payer OTHER, SELFPAY ==
[2021-07-27] VITALS (9 sets, daily range): BP systolic 123–180; BP diastolic 60–82; PULSE 57–75; RESP 15–20; TEMP 36.2; O2SAT 97–100
--- NOTE | 2021-07-27 13:35 | DI.RAD.S_ITS ---
PROCEDURE: PAIN L/S TRANSFORAMINAL INJECT INDICATIONS: SPONDYLOSIS COMPARISON: [facility], MR, MR LUMBAR SPINE WO CON, 01/27/2021, 13:00. FINDINGS: Fluoroscopic spot filming was performed to verify placement of a spinal needle at the L4-L5 level, as labeled on the films. Appropriate location of the needle tip was confirmed by injection of iodinated contrast. IMPRESSION: Intraprocedural examination within normal limits. Dictated by: Jairo Patten M.D. on 07/27/2021 at 14:02 Approved by: Jairo Patten M.D. on 07/27/2021 at 14:03
[2021-07-27] MEDS: MIDAZOLAM 2 MG/2 ML VIAL IV (14:12)
[2021-07-27] MEDS: BUPIVACAINE 0.25% (PF) VIAL 2 ML INJ (14:16)
[2021-07-27] MEDS: IOPAMIDOL 15 ML VIAL 3 ML INJ (14:16)
[2021-07-27] MEDS: DEXAMETHASONE 10 MG/ML VIAL 20 MG INJ (14:16)
[2021-07-27] MEDS: BETAMETHASONE 30 MG/5 ML MDV 6 MG INJ (14:17)
--- NOTE | 2021-07-27 14:28 | P.PCN_ITS ---
Date/Time/Diagnoses Date of procedure: 07/27/21 Time of procedure: 14:28 Pre-procedure diagnosis: 1. FORAMINAL STENOSIS WITH LE SYMPTOMS Post-procedure diagnosis: same Procedure Notes Procedure: 1. FLUOROSCOPICALLY GUIDED CONTRAST CONTROLLED TRANSFORAMINAL EPIDURAL STEROID INJECTION - LEFT L4/5 Indications: Nayla is referred by Dr. Neves for treatment of Foraminal Stenosis with Left LE Symptoms Physician: Arnulfo Pinto Total Fluoroscopy time (seconds): 15 Total sedation minutes: 10 Complications: none Procedure in detail & Post-procedure care: FINDINGS Foraminal Nerve Root Compression secondary to disc disease and facet hypertrophy DESCRIPTION OF PROCEDURE Following review of allergy and review of potential side effects and complications, including, but not necessarily limited to, infection, allergic reaction, local tissue breakdown, stroke, temporary or permanent nerve injury, paralysis, and possible , the patient indicated that the patient understood and agreed to proceed. An informed consent document was signed by the patient, witnessed by a nurse, and placed in the patient's chart. Additionally, other treatment options including medications, modalities, and physical therapy were reviewed with the patient. After review of previous anaesthesic history and IV conscious sedation the patient was deemed safe to proceed with today?s procedure with IV conscious sedation as ASA class II designation. Safety time-out was performed to confirm patient ID, procedure to be performed and site of procedure. IV sedation was accomplished with a combination of 2mg of Versed administered by the RN after DO order, titrated to patient comfort during the course of the procedure while the patient remained responsive to all verbal commands In the prone position following sterile prep and drape of the lumbar region, the left L4/5 posterior neuroforamen was identified fluoroscopically. The skin was anesthetized via a 25-gauge 1.5-inch needle with 1% lidocaine solution. At this point, a 25-gauge 3.5-inch spinal needle was atraumatically introduced and advanced under fluoroscopic guidance through the posterior left L4/5 neuroforamen to approximately the anterior aspect of the canal. Depth was confirmed on lateral view. Following negative aspiration, injection of approximately 1.5 cc of Isovue 200 under live fluoroscopy in the AP view confirmed excellent flow along the nerve root, into the epidural space without vascular or intrathecal uptake observed Radiological data, including multiple fluoroscopic views of the lumbosacral spine, reveal a spinal needle at the left L4/5 posterior neuroforamen. Subsequent views show flow of contrast material flowing superiorly and inferiorly along the nerve root confirming epidural flow. Subsequently, a test dose of 1.5 cc of 1% lidocaine solution was administered and patient was observed for two minutes for signs or symptoms of complications, including abdominal pain, shortness of breath, bilateral upper or lower extremity weakness, nausea and vomiting, prior to steroid injection. At this point, a total of 3cc or 20mg of dexamethasone and 6mg of betamethasone was injected without incident. The procedure tolerated the procedure well without signs or symptoms of complications prior to transfer to the recovery area continued monitoring without incident. The patient was then transferred to the recovery area where they were observed for an appropriate time after the injection. The patient reported a VAS score of 7 prior to the procedure and a post- procedure VAS of 0. POST OP INSTRUCTIONS The patient was provided a Pain Log to continue to record their response to the target-specific procedure prior to follow-up visit with their referring physician. Additionally, specific post-injection care instructions and a contact number to our office were provided if concerns arise regarding possible complications associated with the procedure are suspected.
== END 2021-07-27 14:46 | disposition home or self-care (01) ==
LOC: RAD 13:35
PROVIDERS: PCP Student in an Organized Health Care Education/Training Program; Referring Provider Physical Medicine & Rehabilitation; Visit Provider Physical Medicine & Rehabilitation
DX: M48.061 Spinal stenosis, lumbar region without neurogenic claudication (principal); M51.16 Intervertebral disc disorders with radiculopathy, lumbar region
CPT/HCPCS: 64483; 99152; J0702; J1100; J2250

== ENCOUNTER → 2021-10-18 15:05 | Outpatient (CLI) | payer OTHER, SELFPAY | PROVIDERS: PCP Student in an Organized Health Care Education/Training Program; Visit Provider Nurse Practitioner Family | DX: R30.0 Dysuria (principal) | CPT/HCPCS: 87086 ==

== ENCOUNTER → 2021-12-02 13:45 | Outpatient (CLI) | payer OTHER, SELFPAY ==
--- NOTE | 2021-12-02 13:45 | DI.CT.S_ITS ---
PROCEDURE: CT CHEST WO CON INDICATIONS: follow up on pulmonary nodule TECHNIQUE: Noncontrast 5 mm thick sections acquired from the pulmonary apices to the posterior costophrenic angles. 1 mm lung window, 5 mm thick coronal and sagittal and 7 mm axial MIP reformats were then acquired. For radiation dose reduction, the following was used: automated exposure control, adjustment of mA and/or kV according to patient size. COMPARISON: [facility], CT, CT CHEST WO CON, 12/04/2020, 11:54. FINDINGS: Image quality: Excellent. Lungs and pleura: Allowing for differences in positioning, there is a stable distribution of pulmonary scarring and subpleural ground-glass, for example in the azygo esophageal recess. Subpleural ground-glass in the lateral right lower lobe is slightly more conspicuous than prior. No new or enlarging discrete nodule. Left lower lobe calcified granuloma. No pleural effusions. Mediastinum: The aortic valve and annular calcifications. Heart size is normal. No aortic aneurysm. No lymphadenopathy by size criteria. Prominent lymph nodes are stable. No hiatal hernia. Bones and chest wall: Left breast implant. Left axillary clips. No acute or suspicious osseous lesion. Abdomen: Partially seen left hydronephrosis as before. IMPRESSION: Stable lung nodules and scarring compared to 2020. For high risk patients, follow-up for pulmonary micronodules is optional. Other incidental findings above. Dictated by: Uche Mendes M.D. on 12/02/2021 at 14:06 Approved by: Uche Mendes M.D. on 12/02/2021 at 14:15
== END ==
PROVIDERS: PCP Student in an Organized Health Care Education/Training Program; Referring Provider Student in an Organized Health Care Education/Training Program; Visit Provider Student in an Organized Health Care Education/Training Program
DX: R91.8 Other nonspecific abnormal finding of lung field (principal)
CPT/HCPCS: 71250

== ENCOUNTER → 2021-12-15 15:16 | Outpatient (CLI) | payer OTHER, SELFPAY | PROVIDERS: PCP Student in an Organized Health Care Education/Training Program; Referring Provider Student in an Organized Health Care Education/Training Program; Visit Provider Student in an Organized Health Care Education/Training Program | DX: Z13.820 Encounter for screening for osteoporosis (principal); M85.89 Other specified disorders of bone density and structure, multiple sites; Z78.0 Asymptomatic menopausal state; Z90.710 Acquired absence of both cervix and uterus | CPT/HCPCS: 77080 ==

== ENCOUNTER → 2022-04-11 14:56 | Outpatient (CLI) | payer OTHER, SELFPAY ==
[2022-04-11 16:37] LABS: Cholesterol 211 mg/dL (140-199); HDL Cholesterol 74 mg/dL (40-60); LDL Cholesterol Calculated 99 mg/dL (<100); Triglycerides 190 mg/dL (35-150)
== END ==
PROVIDERS: PCP Student in an Organized Health Care Education/Training Program; Referring Provider Internal Medicine Cardiovascular Disease; Visit Provider Internal Medicine Cardiovascular Disease
DX: Z00.00 Encounter for general adult medical examination without abnormal findings (principal)
CPT/HCPCS: 36415; 80061

== ENCOUNTER → 2022-06-06 12:26 | Outpatient (CLI) | payer OTHER, SELFPAY ==
--- NOTE | 2022-06-06 | DI.ECHO.S_ITS ---
[facility] +---------+ : : [address] : [address] : : : : [phone] : : : : Phone: [phone]+ Echocardiogram Report + + :Name: SARBJIT DAVE Study Date: 06/06/2022 Height: 65 in : :[facility] ReadingLocation: Weight: 148 lb : : Gender: Female BSA: 1.7 m2 : :: 1940 Age: 81 yrs BP: 139/85 mmHg: :Reason For Study: AORTIC STENOSIS HR: 62 : :Ordering Physician: YVETTE, : :BRIANA Performed By: GREG LATIF : :Referring: BRIANA THOMASON : + + Interpretation Summary 1) Normal left ventricular thickness, size, wall motion, and systolic function (EF 60-65%). 2) Normal right ventricular size and function. 3) There is mild to moderate aortic stenosis (valve area 1.4cm2, mean gradient 18mmHg, severity ratio 0.45). 4) There is mild aortic regurgitation. 5) Compared to the Echo done 01/23/2020, aortic stenosis has progressed from mild to mild-moderate on this study. Procedure: A two-dimensional transthoracic echocardiogram with color flow and Doppler was performed. The study quality was technically adequate. Comparison is made with the echocardiogram of 01/23/2020. The patient was in normal sinus rhythm during the exam. Left Ventricle: The left ventricle is normal in size and wall thickness. The ejection fraction is estimated to be 60-65%. Right Ventricle: The right ventricle is normal in size and function. Atria: The left atrial size is normal. Right atrial size is normal. There is no Doppler evidence for an interatrial shunt. Mitral Valve: The mitral valve leaflets appear mildly thickened, but open well. There is mild mitral annular calcification. There is mild mitral regurgitation. Aortic Valve: The aortic valve is moderately calcified. There is mild to moderate aortic stenosis. The aortic valve area indexed to the BSA is 0.80 . The peak aortic velocity is 2.8 m/sec. The aortic valve mean gradient is 18 mmHg. Dimensionless index is 0.45. There is mild aortic regurgitation. Tricuspid Valve: The tricuspid valve is normal in structure and function. There is mild tricuspid regurgitation. The right ventricular systolic pressure is estimated to be at least 27 mmHg based on an estimated right atrial pressure of 8 mm Hg. Pulmonic Valve: The pulmonic valve is normal in structure and function. There is mild pulmonic regurgitation. Great Vessels: The aortic root is normal size. The ascending aorta is at the upper limits of normal in size. The IVC is of normal diameter and collapses less than 50% with a sniff. This suggests a right atrial pressure of 8 mm Hg. Pericardium/ Pleura There is no pericardial effusion. There is no pleural effusion. MMode/2D Measurements & Calculations LVIDd: 3.5 cm LVOT diam: 2.0 cm LVIDs: 2.6 cm Ao root diam: 2.8 cm FS: 25.7 % asc Aorta Diam: 3.6 cm IVSd: 0.70 cm LVPWd: 0.90 cm LV duarte. diameter/BSA (cm/m^2): 2.0 LV sys. diameter/BSA (cm/m^2): 1.5 LA A2 area: 22.6 cm2 RA long axis: 4.3 cm LA A4 area: 16.5 cm2 LA length (vol): 5.7 cm LA vol: 55.7 ml LA vol index: 32.0 ml/m2 LVLs ap4: 5.7 cm LVLd ap2: 8.4 cm LVLs ap2: 6.9 cm TAPSE_phl: 1.9 cm Doppler Measurements & Calculations Ao V2 max: 279.0 cm/sec LVOT Max Ayden: 115.0 cm/sec Ao V2 mean: 202.0 cm/sec LV V1 max P.3 mmHg Ao max P.1 mmHg LV V1 VTI: 28.6 cm Ao mean P.0 mmHg BINTA(I,D): 1.4 cm2 Ao V2 VTI: 63.0 cm BINTA(V,D): 1.3 cm2 sev ratio: 0.45 BINTA indexed to BSA (cm^2/m^2): 0.80 AI P1/2t: 528.4 msec AI dec slope: 204.0 cm/sec2 MV E max ayden: 100.0 cm/sec TR max ayden: 220.0 cm/sec MV A max ayden: 103.0 cm/sec TR max P.4 mmHg MV E/A: 0.97 PA V2 max: 100.0 cm/sec Med Peak E' Ayden: 8.7 cm/sec PA V2 mean: 75.4 cm/sec E/E' med: 11.5 PA mean P.0 mmHg Lat Peak E' Ayden: 10.1 cm/sec PA pr(Accel): 7.9 mmHg E/E' lat: 9.9 E/e' average: 10.7 MV dec time: 0.23 sec SV(LVOT): 87.4 ml AV P1/2t-pr_phl: 529.0 msec AV VR_phl: 0.47 BINTA(VTI)/BSA_phl: 0.74 MV P1/2t-pr_phl: 67.0 msec Reading Physician:02:40 PM
== END ==
PROVIDERS: PCP Student in an Organized Health Care Education/Training Program; Referring Provider Internal Medicine Cardiovascular Disease; Visit Provider Internal Medicine Cardiovascular Disease
DX: I08.3 Combined rheumatic disorders of mitral, aortic and tricuspid valves (principal)
CPT/HCPCS: 93306

== ENCOUNTER → 2022-06-11 11:14 | Outpatient (CLI) | payer OTHER, SELFPAY ==
--- NOTE | 2022-06-11 | DI.MG.S_ITS ---
UNILATERAL RIGHT DIGITAL SCREENING MAMMOGRAM 3D/2D WITH CAD: 06/11/2022 CLINICAL: Routine screening. Personal history of left breast cancer, left mastectomy. Comparison is made to exams dated: 06/08/2021 mammogram, 05/16/2020 mammogram - [facility], and 02/20/2017 mammogram - [facility]. The right breast is heterogeneously dense, which may obscure small masses (category c / 51-75% glandular tissue). Current study was also evaluated with a Computer Aided Detection (CAD) system. There are stable benign calcifications in the right breast. There also are stable benign vascular calcifications in the right breast. No significant masses, calcifications, or other findings are seen in the breast. There has been no significant interval change. IMPRESSION: BENIGN There is no mammographic evidence of malignancy. A 1 year screening mammogram is recommended. This exam was interpreted at Station ID: [id number]. NOTE: For mammograms, a report in lay terms will be sent to the patient. Approximately 15% of breast malignancies will not be visualized mammographically. In the management of a palpable breast mass, a negative mammogram must not discourage biopsy of a clinically suspicious lesion. Electronically Signed By: Derrick urena/rome:06/13/2022 08:24:34 letter sent: Normal Exam ACR BI-RADS Category 2: Benign Finding(s) [id number]
== END ==
PROVIDERS: PCP Student in an Organized Health Care Education/Training Program; Referring Provider Student in an Organized Health Care Education/Training Program; Visit Provider Student in an Organized Health Care Education/Training Program
DX: Z12.31 Encounter for screening mammogram for malignant neoplasm of breast (principal)
CPT/HCPCS: 77063; 77067

== ENCOUNTER 2022-12-03 11:21 | Emergency (ER) | payer OTHER, SELFPAY ==
[2022-12-03 11:22] VITALS: BP 187/86; PULSE 86; RESP 14; TEMP 36.2; O2SAT 99; BMI 23.8
--- NOTE | 2022-12-03 11:23 | DI.RAD.S_ITS ---
PROCEDURE: XR CHEST 1V INDICATIONS: Chest pain TECHNIQUE: One view of the chest was acquired. COMPARISON: None. FINDINGS: Surgical changes and devices: Left axillary clips are seen. There is a left breast implant seen. Lungs and pleura: Lungs are clear. No pleural effusions or pneumothorax. Mediastinum: Mediastinal contours appear normal. Heart size is normal. Atherosclerotic calcification of the aortic arch is noted. Bones and chest wall: No suspicious bony lesions. Age-appropriate bony degenerative changes are seen. Overlying soft tissues appear unremarkable. IMPRESSION: No acute cardiopulmonary process is seen. Postoperative and degenerative changes are seen. Dictated by: Jairo Patten M.D. on 12/03/2022 at 11:05 Approved by: Jairo Patten M.D. on 12/03/2022 at 11:06
[2022-12-03 11:25] VITALS: BP 187/86; PULSE 81; O2SAT 99
--- NOTE | 2022-12-03 11:26 | ED.GENADULT ---
HPI - General Adult General Chief complaint: Chest Pain Stated complaint: chest pain Time Seen by Provider: 12/03/22 11:22 Source: patient Mode of arrival: Ambulatory Limitations: no limitations History of Present Illness HPI narrative: 82-year-old female who is here for evaluation of chest pain. She states she thinks that it woke her from sleep at approximately 0300 hours this morning. It has been constant since 0300 hours however there are periods of time when it is worse than others. States she does feel somewhat better when she is sitting up. It is not worse with palpation or deep breathing. She is never had discomfort like this in the past. She does have history of aortic stenosis. No lower extremity swelling. No cough. No shortness of breath. Related Data Home Medications Medication Instructions Recorded Confirmed calcium carbonate 600 mg calcium 600 mg PO DAILY 05/21/20 11/09/22 (1,500 mg) tablet cholecalciferol (vitamin D3) 125 125 mcg PO DAILY 05/21/20 11/09/22 mcg (5,000 unit) capsule mecobalamin (vitamin B12) 5,000 5,000 mcg PO DAILY 05/21/20 11/09/22 mcg lozenge multivitamin 1 tab PO DAILY 05/21/20 11/09/22 ascorbate calcium (vitamin C) 500 500 mg PO DAILY 07/02/21 11/09/22 mg tablet Previous Rx's Medication Instructions Recorded meloxicam 15 mg tablet 15 mg PO DAILY #30 tabs 11/01/21 lisinopril 20 mg tablet 20 mg PO DAILY #90 tabs 03/01/22 pramipexole 0.25 mg tablet 0.25 mg PO TID #270 tabs 10/03/22 Allergies Allergy/AdvReac Type Severity Reaction Status Date / Time No Known Drug Allergies Allergy Verified 12/03/22 11:26 Review of Systems Constitutional Constitutional: Reports system reviewed and no additional complaints, except as documented Cardiovascular Cardiovascular: Reports system reviewed and no additional complaints, except as documented Respiratory Respiratory: Reports system reviewed and no additional complaints, except as documented Gastrointestinal Gastrointestinal: Reports system reviewed and no additional complaints, except as documented Integumentary/Breasts Skin/Breast: Reports system reviewed and no additional complaints, except as documented Hematologic/Lymphatic On Anticoagulants: No Patient History Medical History Aortic stenosis Arthritis Breast cancer (2010) Chickenpox (1950) Colon polyps (Unknown) Diverticular disease (Unknown) Hepatitis A (1958) Herpes zoster (2008) Hip pain (Unknown) History of nephrolithiasis Holosystolic murmur Lumbar radiculopathy Osteoarthritis Osteopenia (Unknown) Other hydronephrosis (12/13/16) Positive PPD (Unknown) Postmenopausal atrophic vaginitis Renal disease Restless leg syndrome (1979) Valvular heart disease Surgical History H/O breast biopsy H/O cystoscopy History of urethral stent Hx of appendectomy (2014) Hx of hysterectomy (1989) Hx of left mastectomy (2010) Hx of surgical procedure (~1961) Family History Father No problems noted. Mother Diabetes mellitus Hypertension Brother Cancer CAD (coronary artery disease) UTI (urinary tract infection) Hypercholesteremia Hypertension Kidney stone Sister Peripheral vascular disease CAD (coronary artery disease) Gout Hypercholesteremia Hypertension Social History marital status: number of children: 1 household members: spouse Smoking Status: Former smoker Tobacco: How many years used: 4 alcohol intake: current substance use type: does not use caffeine: Yes Smoking Status: Former smoker alcohol intake frequency: holidays/special occasions only Substance Use Type: does not use Exam Initial Vital Signs Initial Vital Signs: Vital Signs Temperature 97.2 F L 12/03/22 11:22 Pulse Rate 86 12/03/22 11:22 Respiratory Rate 14 12/03/22 11:22 Blood Pressure 187/86 H 12/03/22 11:22 Pulse Oximetry 99 12/03/22 11:22 Oxygen Delivery Method Room Air 12/03/22 11:22 Const General: cooperative, healthy appearing and comfortable HENMT Head: normal to inspection and normocephalic Resp Effort & Inspection: normal respiratory effort Auscultation: clear to auscultation bilaterally Cardio Rate: regular rate Rhythm: regular rhythm GI Inspection: normal to inspection and non-distended Neuro General: patient alert, patient awake and moves all extremities Extrem General: No edema Scores HEART Score Heart Score history: Slightly Suspicious Heart Score EKG: Normal Heart Score Age: > or = 65 years old Heart Score risk factors: 1-2 risk factors Heart Score troponin: < or = to normal limit Heart Score Total: 3 Course Orders Ordered: ED Orders 12/03/22 11:23 XR chest 1V Stat 12/03/22 11:30 Complete Blood Count AUTO DIFF Stat Comprehensive Metabolic Panel Stat Lipase Stat Magnesium Stat Troponin & CK Cardiac Panel Stat EKG-12 Lead Stat Vital Signs Vital signs: Vital Signs - 8 hr 12/03/22 11:22 12/03/22 11:25 12/03/22 11:25 Temperature 97.2 F L Pulse Rate 86 81 Respiratory Rate 14 Blood Pressure 187/86 H 187/86 H Pulse Oximetry 99 99 Oxygen Delivery Method Room Air 12/03/22 11:30 12/03/22 12:00 12/03/22 12:00 Temperature Pulse Rate 69 68 Respiratory Rate 15 18 Blood Pressure 145/70 H Pulse Oximetry 99 97 Oxygen Delivery Method Medical Decision Making Lab Data Lab results reviewed: Yes I reviewed the patient's lab results. 12/03/22 11:30 12/03/22 11:30 Labs: Lab Results 12/03/22 12/03/22 12/03/22 Range/Units 11:30 11:30 11:30 WBC 6.3 (4.5-11.0) X10^3/uL RBC 4.43 (4.0-5.2) X10^6/uL Hgb 13.7 (12.0-16.0) g/dL Hct 40.3 (36-46) % MCV 91.0 (80-100) fL MCH 31.0 (26-34) PG MCHC 34.1 (30-36) % RDW 13.1 (11.6-14.8) % Plt Count 225 (150-400) X10^3/uL Neut % (Auto) 63.2 (50-75) % Lymph % (Auto) 25.0 (25-40) % Anderson % (Auto) 7.5 (3-14) % Eos % (Auto) 3.1 (2-4) % Baso % (Auto) 1.2 (0-2) % Neut # (Auto) 4000 (7486-3065) /uL Lymph # (Auto) 1600 (6911-6462) /uL Anderson # (Auto) 500 (0-900) /uL Eos # (Auto) 200 (0-450) /uL Baso # (Auto) 100 (0-100) /uL Sodium 138 (137-145) mmol/L Potassium 4.2 (3.4-5.1) mmol/L Chloride 101 (98-107) mmol/L Carbon Dioxide 26 (22-32) mmol/L BUN 17 (7-17) mg/dL Creatinine 0.66 (0.52-1.04) mg/dL Estimated GFR > 60 (>60) mL/min BUN/Creatinine Ratio 25.8 H (6-22) Glucose 97 (80-110) mg/dL Calcium 9.7 (8.4-10.2) mg/dL Magnesium 2.1 (1.6-2.3) mg/dL Total Bilirubin 0.9 (0.2-1.3) mg/dL AST 37 H (14-36) IU/L ALT 30 (<35) IU/L Alkaline Phosphatase 81 (38-126) U/L Total Creatine Kinase 142 H (30-135) U/L Troponin I < 0.012 (0.01-0.034) ng/mL Total Protein 8.0 (6.3-8.2) g/dL Albumin 4.6 (3.5-5.0) g/dL Globulin 3.4 (1.7-4.1) g/dL Albumin/Globulin Ratio 1.4 (1.0-2.8) Lipase 97 (23-300) U/L Imaging Data Chest x-ray: Radiologist's Impression: PROCEDURE:? XR CHEST 1V ? INDICATIONS:? Chest pain ? TECHNIQUE:? One view of the chest was acquired.? ? COMPARISON:? None. ? FINDINGS:? ? Surgical changes and devices:? Left axillary clips are seen.? There is a left breast implant seen. ? Lungs and pleura:? Lungs are clear.? No pleural effusions or pneumothorax.? ? Mediastinum:? Mediastinal contours appear normal.? Heart size is normal.? Atherosclerotic calcification of the aortic arch is noted.? ? Bones and chest wall:? No suspicious bony lesions.? Age-appropriate bony degenerative changes are seen.? ? Overlying soft tissues appear unremarkable.? ? ? IMPRESSION:? ? No acute cardiopulmonary process is seen.? ? Postoperative and degenerative changes are seen.? ECG Data Attestation: I personally reviewed and interpreted this ECG as follows: Interpretation: Sinus rhythm Ventricular rate is 73 Normal axis Normal QRS Normal QTC No ST T wave changes MDM Narrative Medical decision making narrative: Patient has a normal EKG and a low risk heart score and a negative troponin greater than 6 hours after consistent symptoms.? Upon re-evaluation her symptoms are completely gone.? Chest x-ray is unremarkable.? Had a discussion with the patient regarding this.? She understands the lack of a definitive diagnosis.? She understands that we can not completely rule out ACS however feel that it is unlikely based on her workup here.? Plan will be to discharge home and have her contact her primary doctor for follow-up to discuss the indications for stress test.? She was given return precautions.? She expressed understanding and agreement. Discharge Plan Departure Patient Disposition: Home Clinical Impression: Atypical chest pain Instructions: DI for Atypical Chest Pain Activity Restrictions/Additional Instructions: Recommend that you continue to take all of your medications as directed. Contact your primary doctor on Monday for follow-up to discuss the indications for stress test. Return to the emergency department for new or worsening symptoms. Prescriptions: No Action lisinopril 20 mg tablet 20 mg PO DAILY Qty: 90 2RF pramipexole 0.25 mg tablet 0.25 mg PO TID Qty: 270 2RF ascorbate calcium (vitamin C) 500 mg tablet 500 mg PO DAILY meloxicam 15 mg tablet 15 mg PO DAILY Qty: 30 2RF cholecalciferol (vitamin D3) 125 mcg (5,000 unit) capsule 125 mcg PO DAILY mecobalamin (vitamin B12) 5,000 mcg lozenge 5,000 mcg PO DAILY Rx Instructions: allow to dissolve in mouth OR may chew lightly before swallowing multivitamin Tablet 1 tab PO DAILY calcium carbonate 600 mg calcium (1,500 mg) tablet 600 mg PO DAILY Referrals: Yevgeniy Islas DO [Primary Care Provider] - Stand Alone Forms: Patient Portal/API
[2022-12-03 11:30] VITALS: PULSE 69; RESP 15; O2SAT 99
[2022-12-03 11:42] LABS: Add Manual Diff / Slide Review NO; Basophils Absolute Auto 100 /uL (0-100); Basophils Percent Auto 1.2 % (0-2); Eosinophils Absolute Auto 200 /uL (0-450); Eosinophils Percent Auto 3.1 % (2-4); Hematocrit 40.3 % (36-46); Hemoglobin 13.7 g/dL (12.0-16.0); Lymphocytes Absolute Auto 1600 /uL (1100-4500); Mean Corpuscular HGB Conc 34.1 % (30-36); Monocytes Absolute Auto 500 /uL (0-900); Monocytes Percent Auto 7.5 % (3-14); Neutrophils Absolute Auto 4000 /uL (1500-7000); Neutrophils Percent Auto 63.2 % (50-75); Platelet Count 225 X10^3/uL (150-400); Red Blood Cell Count 4.43 X10^6/uL (4.0-5.2); Red Cell Distribution Width 13.1 % (11.6-14.8); White Blood Cell Count 6.3 X10^3/uL (4.5-11.0)
[2022-12-03 11:55] LABS: Alanine Aminotransferase 30 IU/L (<35); Albumin 4.6 g/dL (3.5-5.0); Albumin Globulin Ratio 1.4 (1.0-2.8); Alkaline Phosphatase 81 U/L (38-126); Aspartate Aminotransferase 37 IU/L (14-36); BUN Creatinine Ratio 25.8 (6-22); Bilirubin Total 0.9 mg/dL (0.2-1.3); Blood Urea Nitrogen 17 mg/dL (7-17); Calcium 9.7 mg/dL (8.4-10.2); Carbon Dioxide 26 mmol/L (22-32); Chloride 101 mmol/L (98-107); Creatine Kinase 142 U/L (30-135); Estimated Glomerular Filt Rate > 60 mL/min (>60); Globulin 3.4 g/dL (1.7-4.1); Glucose 97 mg/dL (80-110); HEMOLYSIS < 15 (0-50); Lipase 97 U/L (23-300); Magnesium 2.1 mg/dL (1.6-2.3); Potassium 4.2 mmol/L (3.4-5.1); Sodium 138 mmol/L (137-145)
[2022-12-03 12:00] VITALS: BP 145/70; PULSE 68; RESP 18; O2SAT 97
[2022-12-03 12:06] LABS: Troponin I < 0.012 ng/mL (0.01-0.034)
[2022-12-03 12:30] VITALS: BP 137/91; PULSE 80; O2SAT 95
[2022-12-03 13:00] VITALS: BP 133/76; PULSE 74; RESP 24; O2SAT 96
== END 2022-12-03 13:17 | disposition home or self-care (01) ==
PROVIDERS: Emergency Provider Emergency Medicine; PCP Family Medicine
DX: R07.89 Other chest pain (principal)
CPT/HCPCS: 36415; 71045; 80053; 82550; 83690; 83735; 84484; 85025; 93005; 93010; 99284

== ENCOUNTER → 2023-06-13 11:11 | Outpatient (CLI) | payer OTHER, SELFPAY ==
--- NOTE | 2023-06-13 | DI.MG.S_ITS ---
UNILATERAL RIGHT DIGITAL SCREENING MAMMOGRAM 3D/2D WITH CAD POST MASTECTOMY: 06/13/2023 CLINICAL: Routine screening. Personal history of left breast cancer. Comparison is made to exams dated: 06/11/2022 mammogram, 06/08/2021 mammogram, and 05/16/2020 mammogram - [facility]. The right breast is heterogeneously dense, which may obscure small masses (category c / 51-75% glandular tissue). Current study was also evaluated with a Computer Aided Detection (CAD) system. There are stable benign calcifications in the right breast. There also are stable benign vascular calcifications in the right breast. No significant masses, calcifications, or other findings are seen in the breast. There has been no significant interval change. IMPRESSION: BENIGN There is no mammographic evidence of malignancy. A 1 year screening mammogram is recommended. This exam was interpreted at Station ID: [id number]. NOTE: For mammograms, a report in lay terms will be sent to the patient. Approximately 15% of breast malignancies will not be visualized mammographically. In the management of a palpable breast mass, a negative mammogram must not discourage biopsy of a clinically suspicious lesion. Electronically Signed By: Dario mcdowell/rome:06/13/2023 17:56:24 letter sent: Normal Exam ACR BI-RADS Category 2: Benign Finding(s) 3342F
== END ==
PROVIDERS: PCP Family Medicine; Referring Provider Family Medicine; Visit Provider Family Medicine
DX: Z12.31 Encounter for screening mammogram for malignant neoplasm of breast (principal); Z85.3 Personal history of malignant neoplasm of breast; R92.331 Mammographic heterogeneous density, right breast
CPT/HCPCS: 77063; 77067

== ENCOUNTER → 2023-08-09 15:22 | Outpatient (CLI) | payer OTHER, SELFPAY ==
--- NOTE | 2023-08-10 08:55 | DI.NM.S_ITS ---
DATE OF SERVICE: 08/09/2023 PROCEDURE: Exercise stress test. INDICATIONS: Decreased exercise tolerance. CARDIAC STRESS: The patient underwent exercise stress test under the supervision of an attending staff. She walked on Jose Juan protocol for 8 minutes 59 seconds, achieved maximum heart rate of 197. At that time, patient was in SVT; however, maximum sinus heart rate of 140. With maximum heart rate of 197, 141% of target heart rate. Resting blood pressure 118/70 and peak blood pressure 166/100 mmHg. RANDOLPH -84%. 10.1 METs of workload. Resting rhythm sinus with repolarization changes. During stress and including episode of SVT, no significant ST depression suggestive of ischemia. At peak exercise, patient developed SVT with narrow QRS tachycardia. With vagal maneuver, it got converted. The patient also has intermittent PACs and PVCs. No obvious atrial fibrillation or ventricular tachycardia seen. No chest discomfort. The patient had some shortness of breath. CONCLUSION: Exercise stress test did not show any convincing inducible ischemia. Excellent exercise tolerance. Walked on Jose Juan protocol for 8 minutes 59 seconds. RANDOLPH -84%. Normal hemodynamic response; however, at peak exercise, patient developed episode of narrow QRS tachycardia, likely supraventricular tachycardia which lasted about 3 minutes with maximum heart rate 197. No obvious atrial fibrillation or ventricular tachycardia seen. Supraventricular tachycardia responded to vagal maneuvers. No obvious atrial flutter seen. No chest pain. Some shortness of breath. Overall, low-risk exercise stress test. Correlate clinically. Nayla Ferguson - ALONZO/ирина/ISH doc#: [id number]/job#: [id number] dd: 08/09/2023 16:49:00 dt: 08/09/2023 19:26:00 DICTATING MD/COPIES TO: Eusebio Benoit MD COPIES MNE: DIEGO;
== END ==
PROVIDERS: PCP Family Medicine; Referring Provider Family Medicine; Visit Provider Family Medicine
DX: I35.0 Nonrheumatic aortic (valve) stenosis (principal); R07.89 Other chest pain; R35.0 Frequency of micturition
CPT/HCPCS: 87086; 93017

== ENCOUNTER → 2023-08-09 16:14 | Outpatient (CLI) | payer OTHER, SELFPAY | PROVIDERS: PCP Family Medicine; Visit Provider Physician Assistant Surgical | DX: R35.0 Frequency of micturition (principal) | CPT/HCPCS: 87086 ==

== ENCOUNTER → 2023-08-11 09:11 | Outpatient (CLI) | payer OTHER, SELFPAY ==
--- NOTE | 2023-08-11 09:12 | DI.ECHO.S_ITS ---
[facility] : : [id number] : : [place] : : [id number] : : Phone: [phone] Echocardiogram Report + + :Name: SARBJIT DAVE Study Date: 08/11/2023 Height: 65 in : :[facility] ReadingLocation: Weight: 150 lb : : Gender: Female BSA: 1.8 m2 : :: 1940 Age: 82 yrs BP: 127/84 mmHg: :Reason For Study: NONRHEUMATIC AORTIC VALVE STENOSIS : :Ordering Physician: CYNTHIA MONK Performed By: Homar Wilson : :Referring: Provider Marky Meyer : + + Interpretation Summary The ejection fraction is estimated to be 60-65%. Diastolic function could not be accurately assessed due to contradictory data. The right ventricle is normal in size and function. There is mild biatrial enlargement. There is moderate mitral regurgitation. There is mild to moderate aortic stenosis. There is mild to moderate aortic regurgitation. There is mild tricuspid regurgitation. The right ventricular systolic pressure is estimated to be at least 38 mmHg based on an estimated right atrial pressure of 8 mm Hg. Compared to the prior study dated 06/06/2022, the aortic regurgitation has increased slightly. Procedure: A two-dimensional transthoracic echocardiogram with color flow and Doppler was performed. The study quality was technically adequate. Comparison is made with the echocardiogram of 06/06/2022. The heart rate ranged between 61-73 bpm during the study. Left Ventricle: The left ventricle is normal in size and wall thickness. The ejection fraction is estimated to be 60-65%. Diastolic function could not be accurately assessed due to contradictory data. Right Ventricle: The right ventricle is normal in size and function. Atria: There is mild biatrial enlargement. The interatrial septum grossly appears intact with no obvious evidence for an atrial septal defect. Mitral Valve: The mitral valve is normal. There is mild mitral annular calcification. There is no mitral valve stenosis. There is moderate mitral regurgitation. Aortic Valve: There is moderate aortic valve sclerosis. There is mild to moderate aortic stenosis. The peak aortic velocity is 2.8 m/sec. The aortic valve mean gradient is 19 mmHg. The calculated aortic valve area is 1.3 cm2. There is mild to moderate aortic regurgitation. Tricuspid Valve: The tricuspid valve is normal. There is no tricuspid stenosis. There is mild tricuspid regurgitation. The right ventricular systolic pressure is estimated to be at least 38 mmHg based on an estimated right atrial pressure of 8 mm Hg. Pulmonic Valve: The pulmonic valve is not well visualized. There is no pulmonic valvular stenosis. There is a trace or physiologic amount of pulmonic regurgitation. Great Vessels: The aortic root is normal size. The dimensions of the ascending aorta are normal. The IVC is dilated (diameter is greater than 2.1 cm) yet it collapses greater than 50% with a sniff. This suggests a right atrial pressure of 8 mm Hg. Pericardium/ Pleura There is no pericardial effusion. There is no pleural effusion. MMode/2D Measurements & Calculations LVIDd: 4.4 cm LVOT diam: 2.0 cm LVIDs: 3.1 cm Ao root diam: 2.8 cm FS: 30.9 % asc Aorta Diam: 3.3 cm IVSd: 0.87 cm Ao Arch Diam (Prox Trans): 2.7 cm LVPWd: 0.92 cm LV duarte. diameter/BSA (cm/m^2): 2.5 LV sys. diameter/BSA (cm/m^2): 1.7 LA A2 area: 24.2 cm2 RA long axis: 4.5 cm LA A4 area: 15.1 cm2 RA area: 15.2 cm2 LA length (vol): 5.0 cm RA vol: 43.5 ml LA vol: 61.9 ml RA : 24.9 ml/m2 LA vol index: 35.4 ml/m2 IVC diam: 2.3 cm RVD1 (basal): 3.4 cm RVD2 (mid): 3.2 cm TAPSE: 2.4 cm Doppler Measurements & Calculations Ao V2 max: 280.4 cm/sec LVOT Max Ayden: 118.0 cm/sec Ao V2 mean: 211.4 cm/sec LV V1 max P.6 mmHg Ao max P.5 mmHg LV V1 VTI: 27.7 cm Ao mean P.2 mmHg BINTA(I,D): 1.2 cm2 Ao V2 VTI: 69.2 cm BINTA(V,D): 1.3 cm2 sev ratio: 0.40 BINTA indexed to BSA (cm^2/m^2): 0.69 MV E max ayden: 105.8 cm/sec TR max adyen: 272.4 cm/sec MV A max ayden: 107.1 cm/sec TR max P.7 mmHg MV E/A: 0.99 PA V2 max: 99.3 cm/sec Med Peak E' Ayden: 6.3 cm/sec PA V2 mean: 75.9 cm/sec E/E' med: 16.7 PA mean P.5 mmHg Lat Peak E' Ayden: 9.0 cm/sec PA pr(Accel): 19.1 mmHg E/E' lat: 11.8 E/e' average: 14.2 MV dec time: 0.22 sec SV(LVOT): 83.3 ml AV P1/2t-pr_phl: 569.6 msec Reading Physician:01:42 PM
== END ==
PROVIDERS: PCP Family Medicine; Referring Provider Family Medicine; Visit Provider Family Medicine
DX: I08.3 Combined rheumatic disorders of mitral, aortic and tricuspid valves (principal)
CPT/HCPCS: 93306